=== PATIENT | male | born 2000 | race Caucasian/White ===

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

== ENCOUNTER → 2018-04-10 | Outpatient (CLI) | payer OTHER ==
[~2018-04-10] MED LIST changes: +CYCLOBENZAPRINE5 M3 PO; +Motrin,Rufen800 MG PO
[2018-04-10 14:54] LABS: BASO # 0.1 10*3/uL (0.0-0.1); BASO % 0.7 % (0.0-1.0); EOS # 0.2 10*3/uL (0.0-0.4); EOS % 2.3 % (1.0-4.0); HEMATOCRIT 44.6 % (42.0-52.0); HEMOGLOBIN 14.9 g/dl (14.0-18.0); LYMPH # 1.4 10*3/uL (1.3-4.4); LYMPH % 16.8 % (27.0-41.0); MEAN CELL VOLUME 78.1 fl (80.0-94.0); MEAN CORPUSCULAR HGB 26.1 pg (27.0-31.0); MEAN CORPUSCULAR HGB CONC 33.4 g/dl (33.0-37.0); MONO # 0.4 10*3/uL (0.1-1.0); MONO % 4.6 % (3.0-9.0); NEUT # 6.3 10*3/uL (2.3-7.9); NEUT % 75.4 % (47.0-73.0); PLATELET COUNT AUTOMATED 281 10*3/uL (130-400); RED BLOOD COUNT 5.71 10*6/uL (4.50-5.90); RED CELL DISTRI WIDTH 14.4 % (0-14.5); WHITE BLOOD COUNT 8.4 10*3/uL (4.8-10.8)
[2018-04-10 15:29] LABS: ALBUMIN 4.3 gm/dl (3.1-4.5); ALKALINE PHOSPHATASE 101 U/L (45-117); BUN 9 mg/dl (7-24); CHLORIDE 105 mmol/L (98-107); POTASSIUM 3.8 mmol/L (3.5-5.1); SGOT/AST 13 IU/L (3-35); SODIUM 141 mmol/L (136-145)
[2018-04-10 15:31] LABS: CREATININE 1.06 mg/dL (0.70-1.30); SGPT/ALT 18 U/L (12-78); TOTAL PROTEIN 7.5 gm/dL (6.4-8.2)
[2018-04-11 16:09] LABS: EPSTEIN-BARR VCA IGM AB <36.0 U/mL (0.0-35.9)
[2018-04-12 18:07] LABS: ALTERNARIA ALTERNATA, IGE <0.10 kU/L (Class 0); AMERICAN ELM, IGE 0.86 kU/L (Class II); ASPERGILLUS FUMIGATU, IGE <0.10 kU/L (Class 0); BERMUDA GRASS, IGE 2.06 kU/L (Class III); BIRCH, COMMON SILVER IGE 9.24 kU/L (Class IV); CLADOSPORIUM HERBARU, IGE <0.10 kU/L (Class 0); CORN, IGE 0.24 kU/L (Class 0/I); D FARINAE MITE 0.18 kU/L (Class 0/I); DOG DANDER, IGE <0.10 kU/L (Class 0); IMMUNOGLOBULIN IgE 002170 158 IU/mL (0-100); MAPLE LEAF SYCAMORE, IGE 1.16 kU/L (Class II); MAPLE/BOX ELDER, IGE 1.34 kU/L (Class II); MILK (COW), IGE <0.10 kU/L (Class 0); MOUSE URINE IGE <0.10 kU/L (Class 0); PEANUT, IGE 0.42 kU/L (Class I); PENICILLIUM CHRYSOGENUM, IGE <0.10 kU/L (Class 0); ROUGH PIGWEED, IGE 0.59 kU/L (Class II); SHEEP SORREL (DOCK), IGE 1.27 kU/L (Class II); SOYBEAN, IGE 0.13 kU/L (Class 0/I); WALNUT TREE, IGE 1.75 kU/L (Class III); WHEAT, IGE 0.47 kU/L (Class I); WHITE ASH, IGE 1.81 kU/L (Class III); WHITE MULBERRY, IGE 0.12 kU/L (Class 0/I)
== END ==
LOC: LAB 14:08
PROVIDERS: Pediatrics
DX: R05 Cough (principal)

== ENCOUNTER → 2018-04-14 | Outpatient (CLI) | payer OTHER ==
[2018-04-14 12:19] LABS: BILIRUBIN, DIRECT 0.3 mg/dL (0.0-0.2)
== END | disposition home or self-care (01) ==
LOC: LAB 10:53
PROVIDERS: Pediatrics
DX: E80.7 Disorder of bilirubin metabolism, unspecified (principal); R79.89 Other specified abnormal findings of blood chemistry

== ENCOUNTER 2019-03-18 23:17 | Emergency (ER) | payer SELFPAY ==
[~2019-03-18] VITALS: Ht 177.8 cm; Wt 72.6 kg
[2019-03-19] MEDS ORDERED: IBUPROFEN600 MG PO (00:25)
== END 2019-03-19 00:52 | disposition home or self-care (01) ==
LOC: ED 23:17
DX: S29.012A Strain of muscle and tendon of back wall of thorax, initial encounter (principal); S93.401A Sprain of unspecified ligament of right ankle, initial encounter; X50.0XXA Overexertion from strenuous movement or load, initial encounter; Y93.89 Activity, other specified; Y92.89 Other specified places as the place of occurrence of the external cause; Y99.8 Other external cause status

== ENCOUNTER 2019-07-11 18:40 | Emergency (ER) | payer SELFPAY ==
[~2019-07-11] VITALS: Ht 175.2 cm; Wt 63.5 kg
[~2019-07-11 18:40] MED LIST changes: +IBUPROFEN600 MG PO
== END 2019-07-11 21:15 | disposition home or self-care (01) ==
LOC: ED 18:40
DX: S61.411A Laceration without foreign body of right hand, initial encounter (principal); S60.221A Contusion of right hand, initial encounter; W22.8XXA Striking against or struck by other objects, initial encounter; Y93.89 Activity, other specified; Y92.89 Other specified places as the place of occurrence of the external cause; Y99.8 Other external cause status

== ENCOUNTER 2019-07-28 17:53 | Emergency (ER) | payer SELFPAY ==
[~2019-07-28] VITALS: Ht 177.8 cm; Wt 65.3 kg
[2019-07-28] MEDS ORDERED: HYDROXYZINE HCL25 MG PO (18:53)
== END 2019-07-28 18:53 | disposition home or self-care (01) ==
LOC: ED 17:53
DX: F32.9 Major depressive disorder, single episode, unspecified (principal); F17.200 Nicotine dependence, unspecified, uncomplicated

== ENCOUNTER 2021-07-16 21:46 | Emergency (ER) | payer OTHER ==
[~2021-07-16] VITALS: Ht 177.8 cm; Wt 77.1 kg
[~2021-07-16 21:46] MED LIST changes: +HYDROXYZINE HCL25 MG PO
== END 2021-07-17 | disposition home or self-care (01) ==
LOC: ED 21:46
DX: R05 Cough (principal); Z20.822 Contact with and (suspected) exposure to COVID-19

== ENCOUNTER 2022-07-04 18:11 | Emergency (ER) | payer OTHER ==
[~2022-07-04] VITALS: Ht 175.2 cm; Wt 74.8 kg
[2022-07-04] MEDS ORDERED: VALTREX1000 MG PO (18:45)
== END 2022-07-04 18:58 | disposition home or self-care (01) ==
LOC: ED 18:11
DX: A60.01 Herpesviral infection of penis (principal)